=== PATIENT | female | born 1985 | race Caucasian/White ===

== ENCOUNTER 2021-03-21 22:47 | Inpatient (IN) | payer BC ==
[~2021-03-21] VITALS: Ht 172.7 cm; Wt 80.7 kg
[~2021-03-21 22:47] MED LIST: COLACE 100MG C100 MG PO; IBUPROFEN600 MG PO; OMNICEF 300 MG300 MG PO; PRENATAL VITAM1 EAC8 PO
[2021-03-22 01:02] LABS: HEMOGLOBIN 12.5 gm/dl (12.3-15.3); RED BLOOD COUNT 3.85 M/UL (4.00-5.10); WHITE BLOOD COUNT 13.4 K/UL (4.5-11.0)
[2021-03-22] MEDS ORDERED: PRENATAL VITAM1 EAC3 PO (06:25)
[2021-03-22] MEDS ORDERED: IBUPROFEN800 MG PO (12:13)
[2021-03-22] MEDS ORDERED: DULCOLAX STOOL100 MG PO (12:13)
[2021-03-23 08:02] LABS: HEMOGLOBIN 12.8 gm/dl (12.3-15.3)
[2021-03-23] MEDS ORDERED: AZITHROMYCIN500 MG PO (10:47)
== END 2021-03-23 15:18 | disposition home or self-care (01) | DRG 807 ==
LOC: GENOP 22:47 → OB 03-22 00:06
PROVIDERS: ADMIT Obstetrics & Gynecology
PROC: 4A1HXCZ Monitoring of Products of Conception, Cardiac Rate, External Approach (ICD-10-PCS; 2021-03-21)
PROC: 10E0XZZ Delivery of Products of Conception, External Approach (ICD-10-PCS; principal; 2021-03-22)
DX: O42.92 Full-term premature rupture of membranes, unspecified as to length of time between rupture and onset of labor (principal); Z37.0 Single live birth; Z3A.38 38 weeks gestation of pregnancy; Z88.6 Allergy status to analgesic agent; Z88.5 Allergy status to narcotic agent; Z20.822 Contact with and (suspected) exposure to COVID-19
CPT/HCPCS: 36415; 83518; 85014; 85018; 85025; J2590; J7120; U0002